=== PATIENT | male | born 1990 | race Hispanic/Latino ===

== ENCOUNTER 2024-10-30 19:03 | Emergency (ER) | payer SELFPAY ==
[2024-10-30] MEDS ORDERED: LIDOCAINE 2% MPF 5 ML VIAL ONE (19:31)
[2024-10-30] MEDS ORDERED: TDAP (DIPHTH,PERTUSS(ACELL),TET VAC) 0.5 ML VIAL IMVAC ONE (19:31)
[2024-10-30] MEDS ORDERED: LIDOCAINE 2% W/EPI 1:200,000 MPF 20 ML VIAL IM ONE (19:35)
--- NOTE | 2024-10-30 20:41 | ER ---
Nurse's Notes [facility] Name: Migel Pereira Age: 34 yrs Sex: Male : 1990 Arrival Date: 10/30/2024 Time: 19:03 Bed 12 Private MD: Diagnosis: Laceration without foreign body of left elbow Presentation: 10/30 19:24 Chief complaint: Patient states: was working outside and got a laceration to the left al5 forearm on a piece of metal. Coronavirus screen: At this time, the client does not indicate any symptoms associated with coronavirus-19. Ebola Screen: No symptoms or risks identified at this time. Complicating Factors: There are no complicating factors for this patient. Initial Sepsis Screen: Does the patient meet any 2 criteria? HR > 90 bpm. No. Patient's initial sepsis screen is negative. Does the patient have a suspected source of infection? No. Patient's initial sepsis screen is negative. Risk Assessment: Do you want to hurt yourself or someone else? Patient reports no desire to harm self or others. Onset of symptoms was October 30, 2024. 19:24 Method Of Arrival: Ambulatory al5 19:24 Acuity: TOMI 3 al5 Triage Assessment: 19:25 General: Appears in no apparent distress. Behavior is calm, cooperative. Pain: al5 Complains of pain in palmar aspect of left forearm Pain currently is 2 out of 10 on a pain scale. EENT: No signs and/or symptoms were reported regarding the EENT system. Neuro: Level of Consciousness is awake, alert, obeys commands, Oriented to person, place, time, situation. Cardiovascular: Capillary refill < 3 seconds Patient's skin is warm and dry. Respiratory: Airway is patent Respiratory effort is even, unlabored, Respiratory pattern is regular, symmetrical. GI: No signs and/or symptoms were reported involving the gastrointestinal system. : No signs and/or symptoms were reported regarding the genitourinary system. Derm: laceration to back side of L forearm. Musculoskeletal: No signs and/or symptoms reported regarding the musculoskeletal system. Injury Description: Laceration sustained to palmar aspect of left forearm is bleeding moderately, is bleeding a small amount. Historical: - Allergies: 19:25 No Known Allergies; al5 - PMHx: 19:25 None; al5 - PSHx: 19:25 None; al5 - Immunization history:: Adult Immunizations up to date, Last tetanus immunization: not up to date. - Infectious Disease History:: Denies. - Social history:: Smoking status: Patient denies any tobacco usage or history of. Screenin:27 [facility] ED Fall Risk Assessment (Adult) History of falling in the last 3 months, al5 including since admission No falls in past 3 months (0 pts) Confusion or Disorientation No (0 pts) Intoxicated or Sedated No (0 pts) Impaired Gait No (0 pts) Mobility Assist Device Used No (0 pt) Altered Elimination No (0 pt) Score/Fall Risk Level 0 - 2 = Low Risk Oriented to surroundings, Maintained a safe environment, Hourly rounding (assess needs \T\ fall precautionary measures) done. Abuse screen: Denies threats or abuse. Denies injuries from another. Nutritional screening: No deficits noted. Tuberculosis screening: No symptoms or risk factors identified. Assessment: 19:27 Reassessment: see triage assessment. al5 20:20 Reassessment: Patient appears in no apparent distress at this time. No changes from al5 previously documented assessment. Patient and/or family updated on plan of care and expected duration. Pain level reassessed. Patient is alert, oriented x 3, equal unlabored respirations, skin warm/dry/pink. provider at bedside suturing patient at this time. Vital Signs: 19:24 BP 146 / 105; Pulse 96; Resp 18; Temp 99.6; Pulse Ox 100% on R/A; Weight 74.84 kg; al5 Height 5 ft. 6 in. ; 20:48 BP 155 / 96; Pulse 87; Resp 16; Pulse Ox 99% ; al5 19:24 Body Mass Index 26.63 (74.84 kg, 167.64 cm) al5 ED Course: 19:05 Patient arrived in ED. im 19:14 José Antonio Carvajal PA is PHCP. cp 19:14 Bright Machuca DO is Attending Physician. cp 19:24 Nelly Caruso, REY is Primary Nurse. al5 19:25 Triage completed. al5 19:27 Arm band placed on right wrist. Patient placed in the treatment room, in view of staff al5 members, on pulse oximetry. 19:27 Patient has correct armband on for positive identification. Bed in low position. Call al5 light in reach. Side rails up X 1. Provided Education on: plan of care. 19:28 Patient did not have IV access during this emergency room visit. al5 20:20 Assist provider with laceration repair on palmar aspect of left forearm that was al5 between 2.6 to 7.5 cm using sutures. Set up tray. Performed by José Antonio LYN Dressed with 4X4s, Kerlix, Neosporin. 20:30 XRAY Elbow LEFT 3 view In Process Unspecified. EDMS 20:45 Wound care: to laceration located on palmar aspect of left forearm was cleaned with al5 Hibiclens, soaked in normal saline solution, irrigated with normal saline, dressed with Neosporin, 4X4s, Kerlix, Patient tolerated well. Administered Medications: 19:47 Drug: Boostrix Tdap IM 0.5 ml IM once; as a single dose Route: IM; Site: left deltoid; al5 20:46 Follow up: Response: (VIS) Vaccine information sheet provided today. Questions and/or al5 concerns addressed. VIS edition date: Feb 25, 2021.; No adverse reaction 20:46 Drug: Lidocaine Infiltration (2 %) 20 ml 5 ml Infiltration once; with epinephrine al5 {Note: given by provider.} Volume: 5 ml; Route: Infiltration; 20:46 Follow up: Response: No adverse reaction al5 Medication: 20:45 Vaccine Information Statement (VIS) provided today. Questions and/or concerns al5 addressed. VIS edition date: February 25, 2021. Outcome: 20:41 Discharge ordered by MD. comer 20:48 Discharged to home ambulatory, with family, al5 20:48 Condition: good 20:48 Discharge instructions given to patient, family, Instructed on discharge instructions, follow up and referral plans. Demonstrated understanding of instructions, follow-up care, 20:55 Patient left the ED. al5 Signatures: Dispatcher [employer] EDHI José Antonio Carvajal PA PA cp Mendoza, Itzel im Langhorst, Amanda, RN RN al5
--- NOTE | 2024-10-30 20:41 | EDPHYS ---
Physician Documentation [facility] Name: Migel Pereira Age: 34 yrs Sex: Male : 1990 Arrival Date: 10/30/2024 Time: 19:03 Bed 12 Private MD: ED Physician Bright Machuca HPI: 10/30 19:25 This 34 yrs old Male presents to ER via Ambulatory with complaints of Laceration To Arm.cp 19:25 The patient has a laceration sharp edge of piece of metal. cp 19:25 The laceration(s) is(are) located on the medial side of left elbow. Onset: The cp symptoms/episode began/occurred just prior to arrival. Associated signs and symptoms: The patient has no apparent associated signs or symptoms. Historical: - Allergies: 19:25 No Known Allergies; al5 - PMHx: 19:25 None; al5 - PSHx: 19:25 None; al5 - Immunization history:: Adult Immunizations up to date, Last tetanus immunization: not up to date. - Infectious Disease History:: Denies. - Social history:: Smoking status: Patient denies any tobacco usage or history of. ROS: 19:30 Constitutional: Negative for fever, cp 19:30 MS/extremity: Positive for laceration, of the medial side of left elbow, Negative for decreased range of motion, paresthesias, 19:30 Neuro: Negative for numbness, tingling, weakness, 19:30 All other systems are negative, Exam: 19:35 Constitutional: The patient appears in no acute distress, alert, awake, well developed, cp well nourished, 19:35 Head/Face: Normocephalic, atraumatic. cp 19:35 Chest/axilla: Inspection: normal, 19:35 Cardiovascular: Rate: normal, 19:35 Respiratory: the patient does not display signs of respiratory distress, Respirations: normal, no use of accessory muscles, no retractions, labored breathing, is not present, 19:35 Musculoskeletal/extremity: Extremities: noted in the medial side of left elbow: laceration, ROM: full active range of motion, in the left elbow, Pulses: noted to be 2+ in the left radial artery, Sensation intact. 19:35 Neuro: Orientation: to person, place \T\ time. Mentation: is normal, Motor: moves all fours, strength is normal, Sensation: is normal, Vital Signs: 19:24 BP 146 / 105; Pulse 96; Resp 18; Temp 99.6; Pulse Ox 100% on R/A; Weight 74.84 kg; al5 Height 5 ft. 6 in. ; 20:48 BP 155 / 96; Pulse 87; Resp 16; Pulse Ox 99% ; al5 19:24 Body Mass Index 26.63 (74.84 kg, 167.64 cm) al5 Laceration: 20:38 Wound Repair of 4cm ( 1.6in ) subcutaneous laceration to medial side of left elbow. cp Linear shaped.. Distal neuro/vascular/tendon intact. Anesthesia: Local anesthetic administered with 7 mls of 2% lidocaine. Wound prep: Moderate cleansing with hibiclenz by me, Wound irrigation by me. Skin closed with 1 4-0 Prolene using running sutures. Dressed with Bacitracin, 4x4's. Patient tolerated well. MDM: 19:14 Medical Screening Exam initiated cp 19:25 Differential diagnosis: superficial laceration, tendon injury, vascular injury. cp 20:40 Data reviewed: vital signs, nurses notes, radiologic studies, plain films, and as a cp result, I will discharge patient. 20:40 I considered the following discharge prescriptions or medication management in the emergency department Medications were administered in the Emergency Department. See MAR. Independent interpretation of the following test(s) in the Emergency Department X-Ray: My interpretation is images of left elbow negative for fracture. Counseling: I had a detailed discussion with the patient and/or guardian regarding the historical points, exam findings, and any diagnostic results supporting the discharge/admit diagnosis, radiology results, to return to the emergency department if symptoms worsen or persist or if there are any questions or concerns that arise at home. Response to treatment: the patient's symptoms have markedly improved after treatment, and as a result, I will discharge patient. 10/30 19:34 Order name: XRAY Elbow LEFT 3 view cp 10/30 19:23 Order name: Dressing - Wound; Complete Time: 20:46 cp 10/30 19:23 Order name: Gloves, Sterile; Complete Time: 19:48 cp 10/30 19:23 Order name: Setup Suture Tray; Complete Time: 19:48 cp Administered Medications: 19:47 Drug: Boostrix Tdap IM 0.5 ml IM once; as a single dose Route: IM; Site: left deltoid; al5 20:46 Follow up: Response: (VIS) Vaccine information sheet provided today. Questions and/or al5 concerns addressed. VIS edition date: Feb 25, 2021.; No adverse reaction 20:46 Drug: Lidocaine Infiltration (2 %) 20 ml 5 ml Infiltration once; with epinephrine al5 {Note: given by provider.} Volume: 5 ml; Route: Infiltration; 20:46 Follow up: Response: No adverse reaction al5 Disposition: 21:15 I was immediately available on-site in the Emergency Department for consultation in the ms3 care of the patient. 10/31 15:08 Chart complete. cp Disposition Summary: 10/30/24 20:41 Discharge Ordered Notes: Location: Home cp Problem: new cp Symptoms: have improved cp Condition: Stable cp Diagnosis - Laceration without foreign body of left elbow cp Followup: cp - With: Private Physician - When: 10 - 14 days - Reason: Staple/Suture removal Discharge Instructions: - Discharge Summary Sheet cp - Laceration Care, Adult cp Forms: - Medication Reconciliation Form cp - Antibiotic Education cp - Prescription Opioid Use cp - Patient Portal Instructions cp - Leadership Thank You Letter cp Signatures: Dispatcher [employer] EDMS José Antonio Carvajal PA PA cp Sims, Marcus, DO DO ms3 Nelly Caruso RN RN al5 Corrections: (The following items were deleted from the chart) 10/30 23:54 23:52 MS/extremity: Positive for laceration, of the medial side of left elbow, Negative cp for decreased range of motion, paresthesias, cp 23:54 23:52 Constitutional: Negative for fever, cp cp 23:54 23:52 Neuro: Negative for numbness, tingling, weakness, cp cp 23:54 23:52 All other systems are negative, cp cp
--- NOTE | 2024-10-30 20:56 | RAD REPORT ---
EXAMINATION: XR Elbow Left 3 View CLINICAL INDICATION: Male, 34 years old. laceration TECHNIQUE: 3 view radiographs of the left elbow were obtained. COMPARISON: No prior exam. FINDINGS: No evidence of fracture or dislocation. Normal alignment. No joint effusion. No evidence of arthropathy. Enthesopathy at the triceps attachment. Soft tissue swelling and irregularity along the medial proximal forearm. IMPRESSION: No acute osseous abnormalities. Soft tissue abnormalities along the medial proximal forearm.
[2024-10-30 21:28] VITALS: BP 146/105; TEMP 99.6; O2SAT 100
== END 2024-10-30 20:55 | disposition home or self-care (01) ==
LOC: ER 19:03
DX: S51.012A Laceration without foreign body of left elbow, initial encounter (principal); W26.8XXA Contact with other sharp object(s), not elsewhere classified, initial encounter
CPT/HCPCS: 90715; 96372; 99284; J2003